=== PATIENT | female | born 1990 | race African-American/Black ===

== ENCOUNTER 2016-05-10 20:14 | Emergency (ER) | payer OTHER | END 2016-05-10 20:45 | disposition home or self-care (01) | LOC: CED 20:14 | DX: F41.0 Panic disorder [episodic paroxysmal anxiety] (principal); F43.0 Acute stress reaction | CPT/HCPCS: 99283 ==

== ENCOUNTER 2016-09-04 21:09 | Emergency (ER) | payer OTHER | END 2016-09-05 00:15 | disposition home or self-care (01) | LOC: CED 21:09 | DX: R51 Headache (principal); F41.9 Anxiety disorder, unspecified | CPT/HCPCS: 36415; 96361; 96374; 96375; 99284; J1100; J1200; J1885; J2765 ==